=== PATIENT | female | born 1995 ===

== ENCOUNTER 2022-11-22 06:30 | Day surgery (SDC) | payer OTHER | END 2022-11-22 16:45 | disposition home or self-care (01) | LOC: CIR.AMB 06:30 | PROVIDERS: ATTEND Orthopaedic Surgery Hand Surgery | DX: S52.531A Colles' fracture of right radius, initial encounter for closed fracture (principal); Z20.822 Contact with and (suspected) exposure to COVID-19 | CPT/HCPCS: 25609; 25280; L8699 ==